=== PATIENT | male | born 1950 | race Caucasian/White ===

== ENCOUNTER → 2021-06-18 10:38 | Outpatient (BNVA) | payer MEDICARE, SELFPAY | PROVIDERS: PCP Nurse Practitioner; Visit Provider Nurse Practitioner | DX: E11.65 Type 2 diabetes mellitus with hyperglycemia (principal) | CPT/HCPCS: 80053; 80061; 81000; 83036; 85025 ==

== ENCOUNTER → 2021-09-04 08:20 | Outpatient (BNVA) | payer MEDICARE, OTHER, SELFPAY | PROVIDERS: PCP Nurse Practitioner; Visit Provider Nurse Practitioner | DX: E11.65 Type 2 diabetes mellitus with hyperglycemia (principal); I10 Essential (primary) hypertension | CPT/HCPCS: 80053; 80061; 85025 ==

== ENCOUNTER → 2021-11-25 08:20 | Outpatient (BNVA) | payer MEDICARE, OTHER, SELFPAY | PROVIDERS: PCP Nurse Practitioner; Visit Provider Nurse Practitioner | DX: I10 Essential (primary) hypertension (principal); E11.65 Type 2 diabetes mellitus with hyperglycemia | CPT/HCPCS: 80053; 80061; 83036 ==

== ENCOUNTER → 2022-05-04 08:31 | Outpatient (BNVA) | payer MEDICARE, OTHER, SELFPAY | PROVIDERS: PCP Nurse Practitioner; Visit Provider Nurse Practitioner | DX: E11.65 Type 2 diabetes mellitus with hyperglycemia (principal); I10 Essential (primary) hypertension | CPT/HCPCS: 80053; 80061; 83036 ==

== ENCOUNTER → 2022-05-10 09:09 | Outpatient (BNVA) | payer MEDICARE, OTHER, SELFPAY | PROVIDERS: PCP Nurse Practitioner; Visit Provider Nurse Practitioner | DX: E11.65 Type 2 diabetes mellitus with hyperglycemia (principal) | CPT/HCPCS: 81000 ==

== ENCOUNTER → 2022-07-26 08:17 | Outpatient (BNVA) | payer MEDICARE, OTHER, SELFPAY | PROVIDERS: PCP Nurse Practitioner; Visit Provider Nurse Practitioner | DX: E11.65 Type 2 diabetes mellitus with hyperglycemia (principal); I10 Essential (primary) hypertension | CPT/HCPCS: 80053; 80061; 83036 ==

== ENCOUNTER → 2022-10-19 07:59 | Outpatient (BNVA) | payer MEDICARE, OTHER, SELFPAY | PROVIDERS: PCP Nurse Practitioner; Visit Provider Nurse Practitioner | DX: E11.65 Type 2 diabetes mellitus with hyperglycemia (principal) | CPT/HCPCS: 80053; 81000; 82043; 83036 ==

== ENCOUNTER 2022-12-31 19:50 | Emergency (ER) | payer MEDICARE, OTHER, SELFPAY ==
[2022-12-31 19:51] VITALS: BP 148/71; PULSE 104; RESP 20; TEMP 36.6; O2SAT 90; BMI 37.1
--- NOTE | 2022-12-31 19:51 | XRR_ITS ---
PROCEDURE INFORMATION: Exam: XR Abdomen Exam date and time: 12/31/2022 8:03 PM Age: 72 years old Clinical indication: Constipation TECHNIQUE: Imaging protocol: Radiologic exam of the abdomen. Views: Frontal supine view of the abdomen. 1 View. COMPARISON: No relevant prior studies available. FINDINGS: Lungs: Visualized lung bases are unremarkable. Gastrointestinal tract: Minimal amount of feces in the right colon. There is feces noted in the rectum. No bowel dilation. Bones/joints: Unremarkable. XR/XR KUB [id number] IMPRESSION: No evidence of constipation. There is minimal amount of feces in the rectum.
--- NOTE | 2022-12-31 20:02 | CTR_ITS ---
PROCEDURE INFORMATION: Exam: CT Abdomen And Pelvis With Contrast Exam date and time: 12/31/2022 9:41 PM Age: 72 years old Clinical indication: Abdominal pain; Patient HX: Diffuse abd pain with constipation TECHNIQUE: Imaging protocol: Computed tomography of the abdomen and pelvis with contrast. Radiation optimization: All CT scans at this facility use at least one of these dose optimization techniques: automated exposure control; mA and/or kV adjustment per patient size (includes targeted exams where dose is matched to clinical indication); or iterative reconstruction. Contrast material: OMNI 350; Contrast volume: 100 ml; Contrast route: INTRAVENOUS (IV); REPORTING DATA: Count of CT and Cardiac NM exams in prior 12 months: This patient has received 0 known CTs and 0 known cardiac nuclear medicine studies in the 12 months prior to the current study. COMPARISON: CR (ABDOMEN, ) 12/31/2022 8:03 PM RADIATION DOSE METRICS: Total DLP (mGy-cm): 1013.16 FINDINGS: Lungs: Visualized lung bases are unremarkable. Liver: Normal. No mass. Gallbladder and bile ducts: The gallbladder is distended with gallstones in its dependent portion. There is no evidence cholecystitis. Pancreas: There is coarse calcification in the pancreas consistent with chronic pancreatitis. Spleen: Normal. No splenomegaly. Adrenal glands: Normal. No mass. Kidneys and ureters: There are multiple subcentimeter hypodensities in the kidneys which statistically represent cysts. Stomach and bowel: There is feces in the sigmoid colon and rectum. There is diverticulosis with no evidence of diverticulitis. Appendix: No evidence of appendicitis. Intraperitoneal space: Unremarkable. No free air. No significant fluid collection. Vasculature: Unremarkable. No abdominal aortic aneurysm. Lymph nodes: Unremarkable. No enlarged lymph nodes. Urinary bladder: Unremarkable as visualized. Reproductive: The prostate is prominent measuring 46.1 mm. Bones/joints: Moderate degenerative disease of the spine.. No acute fracture. Soft tissues: Unremarkable. CT/CT abdomen pelvis w con* [id number] IMPRESSION: Constipation. COMMENTS: Consistent with the [employer]'s Incidental Findings Committee white paper (J Am Taylor Radiol 2018): Any incidental renal lesion less than 1 cm or classified as too small to characterize, or any incidental cystic renal lesion characterized as simple-appearing, is likely benign. No follow-up imaging is recommended for these lesions per consensus recommendations based on imaging criteria.
--- NOTE | 2022-12-31 20:07 | W.ED.ABDPA2 ---
HPI - Abdominal Pain General: Chief Complaint: Abdominal Pain Stated Complaint: no bowel movements Time Seen by Provider: 12/31/22 19:56 Source: patient Mode of arrival: ambulatory Limitations: no limitations History of Present Illness: 72-year-old male states he been having abdominal pain throughout the day. States feelings of vomiting is full and is having diffuse cramping pain states he has had some constipation denies any vomiting or diarrhea. He rates his pain a 5 out of 10 currently he has been afebrile. Associated Symptoms: Reports constipation; Denies chills, diarrhea, fever(s), nausea and vomiting Review of Systems Const: Denies: fever(s), chills, body aches or change in appetite ENMT: Denies: throat pain or dental pain Card: Denies: chest pain Resp: Denies: dyspnea GI: Reports: abdominal pain and constipation; Denies: nausea, vomiting or diarrhea Musc: Denies: neck pain or back pain Skin/Breast: Denies: rash Neuro: Denies: headache(s) PFSH ED PFSH: Medical History Diabetes mellitus with hyperglycemia, without long-term current use of insulin Essential hypertension Obesity (BMI 30-39.9) Surgical History History of knee surgery left knee scope Family History Father Diabetes Mother Smoker Denies family history of Cancer Hypertension Stroke Social History Smoking and tobacco status: never smoked Second hand smoke exposure: No Smoking risk assessment/counseling performed?: No Alcohol intake: never Desire information about alcohol rehabilitation?: No Counseling given: No Substance/Drug Use: never Desire information about substance/drug rehabilitation?: No Counseling given: No Adopted: No Caregiver/support person: Yes Household members: none Housing: House Marital status: Single Number of children: 1 service: No Current occupational status: retired Current occupational exposures/hazards: No Pets and animals: Yes Pets & animals: dog(s) Do you think of yourself as: Straight/Heterosexual Current gender identity: Male Physical Exam Const: COMMON NORMALS: no acute distress, patient oriented x3 and healthy appearing HENMT: COMMON NORMALS: normocephalic and atraumatic HEAD & SCALP: normocephalic and atraumatic Eye: COMMON NORMALS: Equal, round and reactive pupils present and EOMs intact bilaterally PUPIL: Yes Equal, round and reactive pupils present Neck/C-Spine: COMMON NORMALS: full ROM and supple Chest: COMMONS NORMALS: normal inspection of the chest and normal palpation of entire chest wall Resp: COMMON NORMALS: normal respiratory effort, No retractions, No use of accessory muscles and clear to auscultation bilaterally AUSCULTATION: clear to auscultation bilaterally Cardio: COMMON NORMALS: regular rate, regular rhythm and No murmurs present (Cardio) RATE: regular rate RHYTHM: regular rhythm GI: COMMON NORMALS: Soft to palpation and no masses PALPATION: Yes Soft to palpation OTHER: Abdomen is distended with mild tenderness Extremity: COMMON NORMALS: normal to inspection and full ROM Neuro: COMMON NORMALS: patient oriented x3, moves all extremities and no focal motor deficits Psych: COMMON NORMALS: mental status grossly normal, Normal thought process present and cooperative THOUGHT PROCESS: Normal thought process present Skin: COMMON NORMALS: no rashes or lesions noted and no wounds GENERAL SKIN EXAM: no rashes or lesions noted Course Vital Signs: Vital signs: Vital Signs Temperature 97.9 F 12/31/22 19:51 Pulse Rate 122 H 12/31/22 22:42 Respiratory Rate 18 12/31/22 22:42 Blood Pressure 120/75 12/31/22 22:42 Pulse Oximetry 89 L 12/31/22 22:42 Oxygen Delivery Me thod Room Air 12/31/22 22:28 MDM - Abdominal Pain Medical Decision Making Patient presents here with constipation seen on CT scan did give him lactulose we will prescribe MiraLAX for home had some mild hypoxia here he is wanting go home at this time refuses any other work-up he states he feels fine and believe he probably lives around 90 where he has been here he is to follow-up his PCP though return if worsening. Lab Data 12/31/22 20:18 12/31/22 20:18 Labs/Radiology: Radiology Impressions KUB X-Ray 12/31/22 19:51 IMPRESSION: No evidence of constipation. There is minimal amount of feces in the rectum. Abdomen/Pelvis CT 12/31/22 20:02 IMPRESSION: Constipation. COMMENTS: Consistent with the [employer]'s Incidental Findings Committee white paper (J Am Taylor Radiol 2018): Any incidental renal lesion less than 1 cm or classified as too small to characterize, or any incidental cystic renal lesion characterized as simple-appearing, is likely benign. No follow-up imaging is recommended for these lesions per consensus recommendations based on imaging criteria. Chest X-Ray 12/31/22 22:13 IMPRESSION: No acute cardiopulmonary disease. Laboratory Results WBC 10.82 10^3/uL (3.29-11.43) 12/31/22 20:18 RBC 5.07 10^6/uL (3.85-5.65) 12/31/22 20:18 Hgb 15.10 g/dL (11.27-16.99) 12/31/22 20:18 Hct 45.8 % (37-53) 12/31/22 20:18 MCV 90.3 fl (82-101) 12/31/22 20:18 MCH 29.8 pg (27-33) 12/31/22 20:18 MCHC 33.0 g/dL (30-55) 12/31/22 20:18 RDW 13.7 % (12.1-15.1) 12/31/22 20:18 Plt Count 268 10^3/cmm (157-399) 12/31/22 20:18 MPV 9.3 fL (7.4-10.4) 12/31/22 20:18 Neut % (Auto) 93.3 % 12/31/22 20:18 Lymph % (Auto) 5.2 % 12/31/22 20:18 Leon % (Auto) 0.9 % 12/31/22 20:18 Eos % (Auto) 0.0 % 12/31/22 20:18 Baso % (Auto) 0.3 % 12/31/22 20:18 Neut # (Auto) 10.10 10^3/uL (1.8-7.7) H 12/31/22 20:18 Lymph # (Auto) 0.6 10^3/uL (0.8-4.8) L 12/31/22 20:18 Leon # (Auto) 0.1 10^3/uL (0.2-0.9) L 12/31/22 20:18 Eos # (Auto) 0.0 10^3/uL (0.0-0.8) 12/31/22 20:18 Baso # (Auto) 0.0 10^3/uL (0.0-0.1) 12/31/22 20:18 Nucleated RBC % (auto) 0 % 12/31/22 20:18 Nucleated RBCs # 0.0 /100WBC 12/31/22 20:18 Sodium 137 mmol/L (136-145) 12/31/22 20:18 Potassium 4.3 mmol/L (3.5-5.1) 12/31/22 20:18 Chloride 98 mmol/L (98-107) 12/31/22 20:18 Carbon Dioxide 25 mmol/L (22-29) 12/31/22 20:18 Anion Gap 18.3 (5-19) 12/31/22 20:18 BUN 24 mg/dL (8-23) H 12/31/22 20:18 Creatinine 1.1 mg/dL (0.7-1.2) 12/31/22 20:18 GFR Calculation Not Reportable 12/31/22 20:18 Glucose 286 mg/dL (65-115) H 12/31/22 20:18 Calculated Osmolality 298 mOsm/kg (285-295) H 12/31/22 20:18 Calcium 9.1 mg/dL (8.5-10.5) 12/31/22 20:18 Total Bilirubin 1.4 mg/dL (0.15-1.2) H 12/31/22 20:18 AST 199 U/L (0-40) H 12/31/22 20:18 ALT 196 U/L (0-41) H 12/31/22 20:18 Alkaline Phosphatase 103 U/L (40-130) 12/31/22 20:18 Total Protein 7.7 g/dL (6.6-8.7) 12/31/22 20:18 Albumin 4.4 g/dL (3.5-5.2) 12/31/22 20:18 Globulin 3.3 g/dL (1.3-4.6) 12/31/22 20:18 Lipase 49 U/L (13-60) 12/31/22 20:18 Discharge Plan Discharge Patient Disposition: Home Clinical Impression: Constipation Condition: Stable Prescriptions: New Miralax 17 gram powder in packet 17 g PO DAILY Qty: 14 0RF No Action Farxiga 5 mg tablet 5 mg PO QAM Qty: 30 2RF glipizide 10 mg tablet 20 mg PO BID Qty: 360 0RF atorvastatin 40 mg tablet 40 mg PO DAILY Qty: 90 0RF lisinopril 20 mg tablet 20 mg PO DAILY Qty: 90 0RF metformin 500 mg tablet extended release 24 hr 2,000 mg PO DAILY Qty: 360 0RF metoprolol tartrate 25 mg tablet 25 mg PO BID Qty: 180 0RF Discharge Orders: Discharge ED (Routine); Ordered 12/31/22 Ordered By: Sameer Chua Referrals: Art Rivers, [facility] [Primary Care Provider] - 1-3 days Discharge Diet: Advance as tolerated Discharge Activity: Resume usual activity Patient Instructions: Constipation (ED) Coding Level of Care Code ED Human Resources Partner for [facility]
[2022-12-31 20:24] LABS: Basophils % 0.3 %; Hematocrit 45.8 % (37-53); Lymphocytes # 0.6 10^3/uL (0.8-4.8); Lymphocytes % 5.2 %; Mean Corpuscular Hemoglobin 29.8 pg (27-33); Mean Corpuscular Volume 90.3 fl (82-101); Mean Platelet Volume 9.3 fL (7.4-10.4); Monocytes # 0.1 10^3/uL (0.2-0.9); Monocytes % 0.9 %; Neutrophils % 93.3 %; Nucleated Red Blood Cells % 0 %; Platelet Count 268 10^3/cmm (157-399); Red Blood Count 5.07 10^6/uL (3.85-5.65); Red Cell Distribution Width 13.7 % (12.1-15.1); White Blood Count 10.82 10^3/uL (3.29-11.43)
[2022-12-31 21:03] LABS: Alanine Aminotransferase 196 U/L (0-41); Albumin Level 4.4 g/dL (3.5-5.2); Alkaline Phosphatase 103 U/L (40-130); Anion Gap 18.3 (5-19); Aspartate Amino Transferase 199 U/L (0-40); Blood Urea Nitrogen 24 mg/dL (8-23); Calcium 9.1 mg/dL (8.5-10.5); Carbon Dioxide 25 mmol/L (22-29); Chloride 98 mmol/L (98-107); Globulin 3.3 g/dL (1.3-4.6); Glucose 286 mg/dL (65-115); Lipase 49 U/L (13-60); Osmolality Calculated 298 mOsm/kg (285-295); Potassium 4.3 mmol/L (3.5-5.1); Sodium 137 mmol/L (136-145); Total Bilirubin 1.4 mg/dL (0.15-1.2); Total Protein 7.7 g/dL (6.6-8.7)
[2022-12-31] MEDS: iohexol 350 mg/mL 500 mL Btl (per mL) IV (21:43)
[2022-12-31 21:57] VITALS: RESP 18; O2SAT 93
[2022-12-31] MEDS: morphine 4 mg/mL SDV 1 mL IVP (21:57)
[2022-12-31] MEDS: ondansetron 2 mg/ML SDV 2 mL 4 MG IVP (21:58)
--- NOTE | 2022-12-31 22:13 | XRR_ITS ---
PROCEDURE INFORMATION: Exam: XR Chest Exam date and time: 12/31/2022 10:37 PM Age: 72 years old Clinical indication: Pain; Other: Constipation; Additional info: Abd pain TECHNIQUE: Imaging protocol: Radiologic exam of the chest. Views: 1 view. COMPARISON: CT abdomen pelvis w con* [id number] 12/31/2022 9:41 PM FINDINGS: Lungs: Unremarkable. No consolidation. Pleural spaces: Unremarkable. No pleural effusion. No pneumothorax. Heart/Mediastinum: There is cardiomegaly. There is prominence of the descending thoracic. Bones/joints: Unremarkable. Intraperitoneal space: There is no free intraperitoneal air. XR/XR chest 1V portable [id number] IMPRESSION: No acute cardiopulmonary disease.
[2022-12-31] MEDS: lactulose oral liq 20 gm/30 mL UDC 30 GM PO (22:16)
[2022-12-31 22:28] VITALS: BP 126/62; PULSE 118; RESP 18; O2SAT 88
[2022-12-31 22:42] VITALS: BP 120/75; PULSE 122; RESP 18; O2SAT 89
== END 2022-12-31 22:50 | disposition home or self-care (01) ==
PROVIDERS: Emergency Provider Emergency Medicine; PCP Nurse Practitioner
DX: K59.00 Constipation, unspecified (principal); Z79.84 Long term (current) use of oral hypoglycemic drugs; E11.9 Type 2 diabetes mellitus without complications; I10 Essential (primary) hypertension
CPT/HCPCS: 36415; 71045; 74018; 74177; 80053; 83690; 85025; 96374; 96375; 99285; J2270; J2405; Q9967

== ENCOUNTER → 2023-01-17 08:00 | Outpatient (BNVA) | payer MEDICARE, OTHER, SELFPAY | PROVIDERS: PCP Nurse Practitioner; Visit Provider Nurse Practitioner | DX: E11.65 Type 2 diabetes mellitus with hyperglycemia (principal) | CPT/HCPCS: 80053; 80061; 83036; 85025 ==

== ENCOUNTER → 2023-04-05 08:26 | Outpatient (BNVA) | payer MEDICARE, OTHER, SELFPAY | PROVIDERS: PCP Nurse Practitioner; Visit Provider Nurse Practitioner | DX: E11.65 Type 2 diabetes mellitus with hyperglycemia (principal); I10 Essential (primary) hypertension | CPT/HCPCS: 80053; 80061; 83036 ==

== ENCOUNTER → 2023-06-21 07:57 | Outpatient (BNVA) | payer MEDICARE, OTHER, SELFPAY | PROVIDERS: PCP Nurse Practitioner; Visit Provider Nurse Practitioner | DX: E11.65 Type 2 diabetes mellitus with hyperglycemia (principal) | CPT/HCPCS: 80053; 80061; 83036 ==

== ENCOUNTER → 2023-09-05 08:12 | Outpatient (BNVA) | payer MEDICARE, OTHER, SELFPAY | PROVIDERS: PCP Nurse Practitioner; Visit Provider Nurse Practitioner | DX: E11.9 Type 2 diabetes mellitus without complications (principal) | CPT/HCPCS: 80053; 80061; 83036; 85025 ==

== ENCOUNTER 2023-12-30 18:08 | Emergency (ER) | payer MEDICARE, OTHER, SELFPAY ==
[2023-12-30 18:15] VITALS: BP 156/73; PULSE 76; RESP 16; TEMP 36.6; O2SAT 94; BMI 33.7
[2023-12-30 18:39] LABS: Basophils # 0.1 10^3/uL (0.0-0.1); Basophils % 0.4 %; Eosinophils % 0.2 %; Hematocrit 45.8 % (37-53); Lymphocytes # 0.9 10^3/uL (0.8-4.8); Lymphocytes % 6.4 %; Mean Corpuscular Hemoglobin 29.6 pg (27-33); Mean Corpuscular Volume 89.8 fl (82-101); Monocytes # 0.6 10^3/uL (0.2-0.9); Monocytes % 4.4 %; Neutrophils # 11.67 10^3/uL (1.8-7.7); Neutrophils % 88.1 %; Nucleated Red Blood Cells % 0 %; Platelet Count 338 10^3/cmm (157-399); Red Cell Distribution Width 14.3 % (12.1-15.1); White Blood Count 13.26 10^3/uL (3.29-11.43)
[2023-12-30 18:55] LABS: Alanine Aminotransferase 59 U/L (0-41); Albumin Level 4.6 g/dL (3.5-5.2); Alkaline Phosphatase 103 U/L (40-130); Anion Gap 18.9 (5-19); Aspartate Amino Transferase 39 U/L (0-40); Blood Urea Nitrogen 29 mg/dL (8-23); Calcium 9.3 mg/dL (8.5-10.5); Carbon Dioxide 26 mmol/L (22-29); Chloride 94 mmol/L (98-107); Creatinine Clr Calc Pharmacy 59.9725; Globulin 3.3 g/dL (1.3-4.6); Glucose 209 mg/dL (65-115); Lipase 25 U/L (13-60); Osmolality Calculated 290 mOsm/kg (285-295); Potassium 4.9 mmol/L (3.5-5.1); Sodium 134 mmol/L (136-145); Total Bilirubin 1.8 mg/dL (0.15-1.2); Total Protein 7.9 g/dL (6.6-8.7)
--- NOTE | 2023-12-31 00:28 | W.ED.ABDPA2 ---
Documented by User: SUZANNE Hicks 12/31/23 00:34 HPI - Abdominal Pain General: Chief Complaint: Abdominal Pain Stated Complaint: Abd pain constipation fever n/v Time Seen by Provider: 12/30/23 23:45 Source: patient Mode of arrival: ambulatory Limitations: no limitations History of Present Illness: Patient is a 73-year-old male presenting to the emergency department complaining of abdominal pain onset today. Patient states last night he took some milk of magnesia because he felt himself getting constipated, and this seemed to help his pain. He states this morning he was okay until he had sudden onset of vomiting, fevers, and diffuse abdominal pain again. He states that this again resolved while in the waiting room, and he has gone a few hours without having any symptoms. He states he had some very greasy food for lunch, and this may have caused some food poisoning. Denies any upper respiratory symptoms or being around any sick contacts that he knows of. He does not have his gallbladder. He is stating at this time that he is ready to go home. No other symptoms or concerning historical factors to report. MD elicited complaint: abdominal pain Onset (ago): hour(s) Pain Consistency: now resolved Location: Diffuse Severity: mild Radiation: none Associated Symptoms: Reports constipation, fever(s), nausea and vomiting; Denies bloating, change in stool character, chills, diarrhea, dysuria and hematochezia Related Data Previous Rx's Medication Instructions Recorded atorvastatin 40 mg tablet 40 mg PO DAILY #90 tabs 09/08/23 glipizide 10 mg tablet 20 mg (2 x 10 mg) PO BID #360 tabs 09/08/23 liraglutide 0.6 mg/0.1 mL (18 mg/3 1.8 mg (0.3 mL) SUBCUT DAILY #9 mL 09/08/23 mL) subcutaneous pen injector (Victoza 3-Gerard) lisinopril 20 mg tablet 20 mg PO DAILY #90 tabs 09/08/23 metformin 500 mg tablet,extended 2,000 mg (4 x 500 mg) PO DAILY 09/08/23 release 24 hr #360 tabs metoprolol tartrate 25 mg tablet 25 mg PO BID #180 tabs 09/08/23 Allergies Allergy/AdvReac Type Severity Reaction Status Date / Time No Known Allergies Allergy Verified 12/30/23 18:20 Review of Systems General: Reports: 10 or more systems reviewed and unremarkable except in HPI and below Const: Reports: fever(s); Denies: chills, change in appetite, change in weight or diaphoresis ENMT: Denies: throat pain or hoarseness Card: Denies: chest pain, palpitations or lightheadedness Resp: Denies: dyspnea, productive cough or wheezing GI: Reports: abdominal pain, nausea, vomiting and constipation; Denies: diarrhea, bloating, change in stool character or hematochezia : Denies: flank pain, difficulty urinating, dysuria, urinary frequency or urinary urgency Musc: Denies: neck pain or back pain Skin/Breast: Denies: rash or new lesions Neuro: Denies: headache(s) or dizziness PFSH ED PFSH: Medical History Obesity (BMI 30-39.9) Essential hypertension Diabetes mellitus with hyperglycemia, without long-term current use of insulin Surgical History History of knee surgery left knee scope Family History Father Diabetes Mother Smoker Denies family history of Cancer Hypertension Stroke Social History Smoking and tobacco/nicotine status: never used tobacco/nicotine Second hand smoke exposure: No Alcohol intake: never Substance/Drug Use: never Adopted: No Caregiver/support person: Yes Household members: none Housing: House Marital status: Single Number of children: 1 service: No Current occupational status: retired Current occupational exposures/hazards: No Pets and animals: Yes Pets & animals: dog(s) Do you think of yourself as: Straight/Heterosexual Current gender identity: Male Physical Exam Const: COMMON NORMALS: no acute distress, average body habitus, patient oriented x3, no limitations, healthy appearing, alert and well nourished GENERAL APPEARANCE: cooperative and comfortable ORIENTATION/CONSCIOUSNESS: Yes awake HENMT: COMMON NORMALS: normocephalic, atraumatic, hearing grossly normal bilaterally, external ears normal, Normal external nose present, Normal nasal mucous membranes and turbinates present and moist oral mucous membranes HEAD & SCALP: normocephalic and atraumatic NOSE: Normal external nose present and Normal nasal mucous membranes and turbinates present EXTERNAL EAR: Yes external ears normal Eye: COMMON NORMALS: Equal, round and reactive pupils present, EOMs intact bilaterally, conjunctivae normal and normal visual castañeda by confrontation CONJUNCTIVA: Yes conjunctivae normal PUPIL: Yes Equal, round and reactive pupils present Neck/C-Spine: COMMON NORMALS: full ROM, supple, no meningeal signs and no JVD Resp: COMMON NORMALS: normal respiratory effort, No retractions, No use of accessory muscles and clear to auscultation bilaterally AUSCULTATION: clear to auscultation bilaterally, no crackles, no rales, no rhonchi and no wheezes Cardio: COMMON NORMALS: no JVD, regular rate, regular rhythm, S1 normal heart sound present, S2 normal heart sound present, No gallops present (Cardio), No clicks present (Cardio), No murmurs present (Cardio), No rub (Cardio) and Peripheral pulses 2+ throughout RATE: regular rate RHYTHM: regular rhythm HEART SOUNDS: S1 normal heart sound present and S2 normal heart sound present PERIPHERAL PULSES: Peripheral pulses 2+ throughout GI: COMMON NORMALS: Normal to inspection, nondistended, normoactive bowel sounds present, Soft to palpation, non-tender, No hepatosplenomegaly present and no masses AUSCULTATION: Yes normoactive bowel sounds PALPATION: Yes Soft to palpation, No Guarding due to palpation present (GI), No Rigid due to palpation and Yes No hepatosplenomegaly present RECTAL EXAM: Yes deferred : COMMON NORMALS: Yes no CVA tenderness BLADDER/KIDNEY EXAM: Yes no CVA tenderness Back/Pelvis: COMMON NORMALS: no CVA tenderness Extremity: COMMON NORMALS: normal to inspection and full ROM Neuro: COMMON NORMALS: patient oriented x3, moves all extremities, no focal motor deficits and no sensory deficits noted SENSORIUM/ORIENTATION: Yes alert MENINGEAL SIGNS: Yes no meningeal signs Psych: COMMON NORMALS: mental status grossly normal, cooperative and speech normal SPEECH: Yes normal speech Skin: COMMON NORMALS: no rashes or lesions noted GENERAL SKIN EXAM: no rashes or lesions noted Course Vital Signs: Vital signs: Vital Signs Temperature 97.9 F 12/30/23 18:15 Pulse Rate 100 12/31/23 01:08 Respiratory Rate 18 12/31/23 01:08 Blood Pressure 156/73 12/30/23 18:15 Pulse Oximetry 91 12/31/23 01:08 Oxygen Delivery Me thod Room Air 12/30/23 18:15 MDM - Abdominal Pain Medical Decision Making Patient present for abdominal pain that has now resolved. Also had some other symptoms of vomiting, fever, and was constipated last night but this was improved with milk of magnesia. His vitals were normal on arrival, and initially on examination he states he was ready to leave as he was no longer having any symptoms. Labs essentially were unremarkable, glucose elevated though patient is diabetic and had not taken his medication yet. His physical examination was completely unremarkable. Patient's symptoms are thought to be likely viral in nature, but could potentially be an acute food poisoning. Being that he is asymptomatic, no need for imaging at this time or other workup. Patient also is stating that he wants to go home. I did talk with the patient in regards to reasons to return, to which he understands and family member in the room also endorses understanding. Patient discharged home at this time. Lab Data 12/30/23 18:29 12/30/23 18:29 Labs/Radiology: Laboratory Results WBC 13.26 10^3/uL (3.29-11.43) H 12/30/23 18: RBC 5.10 10^6/uL (3.85-5.65) 12/30/23 18: Hgb 15.10 g/dL (11.27-16.99) 12/30/23 18: Hct 45.8 % (37-53) 12/30/23 18: MCV 89.8 fl (82-101) 12/30/23 18: MCH 29.6 pg (27-33) 12/30/23 18: MCHC 33.0 g/dL (30-55) 12/30/23 18: RDW 14.3 % (12.1-15.1) 12/30/23 18: Plt Count 338 10^3/cmm (157-399) 12/30/23 18: MPV 9.0 fL (7.4-10.4) 12/30/23 18: Neut % (Auto) 88.1 % 12/30/23 18: Lymph % (Auto) 6.4 % 12/30/23 18:29 Cook % (Auto) 4.4 % 12/30/23 18: Eos % (Auto) 0.2 % 12/30/23 18:29 Baso % (Auto) 0.4 % 12/30/23 18:29 Neut # (Auto) 11.67 10^3/uL (1.8-7.7) H 12/30/23 18:29 Lymph # (Auto) 0.9 10^3/uL (0.8-4.8) 12/30/23 18:29 Cook # (Auto) 0.6 10^3/uL (0.2-0.9) 12/30/23 18: Eos # (Auto) 0.0 10^3/uL (0.0-0.8) 12/30/23 18: Baso # (Auto) 0.1 10^3/uL (0.0-0.1) 12/30/23 18: Nucleated RBC % (auto) 0 % 12/30/23 18: Nucleated RBCs # 0.0 /100WBC 12/30/23 18:29 Sodium 134 mmol/L (136-145) L 12/30/23 18:29 Potassium 4.9 mmol/L (3.5-5.1) 12/30/23 18: Chloride 94 mmol/L (98-107) L 12/30/23 18:29 Carbon Dioxide 26 mmol/L (22-29) 12/30/23 18:29 Anion Gap 18.9 (5-19) 12/30/23 18:29 BUN 29 mg/dL (8-23) H 12/30/23 18:29 Creatinine 1.2 mg/dL (0.7-1.2) 12/30/23 18:29 GFR Calculation Not Reportable 12/30/23 18:29 Glucose 209 mg/dL (65-115) H 12/30/23 18:29 Calculated Osmolality 290 mOsm/kg (285-295) 12/30/23 18:29 Calcium 9.3 mg/dL (8.5-10.5) 12/30/23 18:29 Total Bilirubin 1.8 mg/dL (0.15-1.2) H 12/30/23 18:29 AST 39 U/L (0-40) 12/30/23 18:29 ALT 59 U/L (0-41) H 12/30/23 18:29 Alkaline Phosphatase 103 U/L (40-130) 12/30/23 18:29 Total Protein 7.9 g/dL (6.6-8.7) 12/30/23 18:29 Albumin 4.6 g/dL (3.5-5.2) 12/30/23 18:29 Globulin 3.3 g/dL (1.3-4.6) 12/30/23 18:29 Lipase 25 U/L (13-60) 12/30/23 18:29 No radiology studies performed this visit Discharge Plan Discharge Patient Disposition: Home Clinical Impression: Viral gastroenteritis Condition: Stable Prescriptions: No Action atorvastatin 40 mg tablet 40 mg PO DAILY Qty: 90 1RF glipizide 10 mg tablet 20 mg PO BID Qty: 360 1RF Victoza 3-Gerard 0.6 mg/0.1 mL (18 mg/3 mL) pen injector 1.8 mg SUBCUT DAILY Qty: 9 2RF lisinopril 20 mg tablet 20 mg PO DAILY Qty: 90 1RF metformin 500 mg tablet extended release 24 hr 2,000 mg PO DAILY Qty: 360 1RF metoprolol tartrate 25 mg tablet 25 mg PO BID Qty: 180 1RF Discharge Orders: Discharge ED (Routine); Ordered 12/31/23 Ordered By: Ezequiel Pittman Referrals: Art Rivers, [employer]ELOPER-C [Primary Care Provider] - Discharge Diet: As Directed Discharge Activity: Increase activity as tolerated Patient Instructions: Gastroenteritis (ED) Activity Restrictions/Additional Instructions: Clear liquid diet. Tylenol or ibuprofen for any pain. Plenty of fluids. If you have any recurrence of pain, severe vomiting, or other concerning symptoms, please return for reevaluation. Otherwise follow-up with primary care. 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 [place] Fwd Documented by User: Mak Puentes DO Ej 12/31/23 19:20 HPI - Abdominal Pain General: Chief Complaint: Abdominal Pain Stated Complaint: Abd pain constipation fever n/v Time Seen by Provider: 12/30/23 23:45 Related Data Previous Rx's Medication Instructions Recorded atorvastatin 40 mg tablet 40 mg PO DAILY #90 tabs 09/08/23 glipizide 10 mg tablet 20 mg (2 x 10 mg) PO BID #360 tabs 09/08/23 liraglutide 0.6 mg/0.1 mL (18 mg/3 1.8 mg (0.3 mL) SUBCUT DAILY #9 mL 09/08/23 mL) subcutaneous pen injector (Victoza 3-Gerard) lisinopril 20 mg tablet 20 mg PO DAILY #90 tabs 09/08/23 metformin 500 mg tablet,extended 2,000 mg (4 x 500 mg) PO DAILY 09/08/23 release 24 hr #360 tabs metoprolol tartrate 25 mg tablet 25 mg PO BID #180 tabs 09/08/23 Allergies Allergy/AdvReac Type Severity Reaction Status Date / Time No Known Allergies Allergy Verified 12/30/23 18:20 PFSH ED PFSH: Medical History Obesity (BMI 30-39.9) Essential hypertension Diabetes mellitus with hyperglycemia, without long-term current use of insulin Surgical History History of knee surgery left knee scope Family History Father Diabetes Mother Smoker Denies family history of Cancer Hypertension Stroke Social History Smoking and tobacco/nicotine status: never used tobacco/nicotine Second hand smoke exposure: No Alcohol intake: never Substance/Drug Use: never Adopted: No Caregiver/support person: Yes Household members: none Housing: House Marital status: Single Number of children: 1 service: No Current occupational status: retired Current occupational exposures/hazards: No Pets and animals: Yes Pets & animals: dog(s) Do you think of yourself as: Straight/Heterosexual Current gender identity: Male Course Vital Signs: Vital signs: Vital Signs Temperature 97.9 F 08/30/24 18:15 Pulse Rate 100 12/31/23 01:08 Respiratory Rate 18 12/31/23 01:08 Blood Pressure 156/73 12/30/23 18:15 Pulse Oximetry 91 12/31/23 01:08 Oxygen Delivery Me thod Room Air 12/30/23 18:15 MDM - Abdominal Pain Medical Decision Making Patient present for abdominal pain that has now resolved. Also had some other symptoms of vomiting, fever, and was constipated last night but this was improved with milk of magnesia. His vitals were normal on arrival, and initially on examination he states he was ready to leave as he was no longer having any symptoms. Labs essentially were unremarkable, glucose elevated though patient is diabetic and had not taken his medication yet. His physical examination was completely unremarkable. Patient's symptoms are thought to be likely viral in nature, but could potentially be an acute food poisoning. Being that he is asymptomatic, no need for imaging at this time or other workup. Patient also is stating that he wants to go home. I did talk with the patient in regards to reasons to return, to which he understands and family member in the room also endorses understanding. Patient discharged home at this time. This patient was originally seen by Mr. Zain PA-C.? I agree with his history, evaluation, and treatment. Lab Data 12/30/23 18:29 12/30/23 18:29 Labs/Radiology: Laboratory Results WBC 13.26 10^3/uL (3.29-11.43) H 12/30/23 18: RBC 5.10 10^6/uL (3.85-5.65) 12/30/23 18: Hgb 15.10 g/dL (11.27-16.99) 12/30/23 18: Hct 45.8 % (37-53) 12/30/23 18: MCV 89.8 fl (82-101) 12/30/23 18: MCH 29.6 pg (27-33) 12/30/23 18: MCHC 33.0 g/dL (30-55) 12/30/23 18: RDW 14.3 % (12.1-15.1) 12/30/23 18: Plt Count 338 10^3/cmm (157-399) 12/30/23 18: MPV 9.0 fL (7.4-10.4) 12/30/23 18: Neut % (Auto) 88.1 % 12/30/23 18: Lymph % (Auto) 6.4 % 12/30/23 18:29 Cook % (Auto) 4.4 % 12/30/23 18:29 Eos % (Auto) 0.2 % 12/30/23 18:29 Baso % (Auto) 0.4 % 12/30/23 18: Neut # (Auto) 11.67 10^3/uL (1.8-7.7) H 12/30/23 18: Lymph # (Auto) 0.9 10^3/uL (0.8-4.8) 12/30/23 18: Cook # (Auto) 0.6 10^3/uL (0.2-0.9) 12/30/23 18: Eos # (Auto) 0.0 10^3/uL (0.0-0.8) 12/30/23 18: Baso # (Auto) 0.1 10^3/uL (0.0-0.1) 12/30/23 18: Nucleated RBC % (auto) 0 % 12/30/23 18: Nucleated RBCs # 0.0 /100WBC 12/30/23 18:29 Sodium 134 mmol/L (136-145) L 12/30/23 18:29 Potassium 4.9 mmol/L (3.5-5.1) 12/30/23 18: Chloride 94 mmol/L (98-107) L 12/30/23 18:29 Carbon Dioxide 26 mmol/L (22-29) 12/30/23 18:29 Anion Gap 18.9 (5-19) 12/30/23 18:29 BUN 29 mg/dL (8-23) H 12/30/23 18:29 Creatinine 1.2 mg/dL (0.7-1.2) 12/30/23 18:29 GFR Calculation Not Reportable 12/30/23 18:29 Glucose 209 mg/dL (65-115) H 12/30/23 18:29 Calculated Osmolality 290 mOsm/kg (285-295) 12/30/23 18:29 Calcium 9.3 mg/dL (8.5-10.5) 12/30/23 18:29 Total Bilirubin 1.8 mg/dL (0.15-1.2) H 12/30/23 18:29 AST 39 U/L (0-40) 12/30/23 18:29 ALT 59 U/L (0-41) H 12/30/23 18:29 Alkaline Phosphatase 103 U/L (40-130) 12/30/23 18:29 Total Protein 7.9 g/dL (6.6-8.7) 12/30/23 18:29 Albumin 4.6 g/dL (3.5-5.2) 12/30/23 18:29 Globulin 3.3 g/dL (1.3-4.6) 12/30/23 18:29 Lipase 25 U/L (13-60) 12/30/23 18:29 Discharge Plan Discharge Patient Disposition: Home Clinical Impression: Viral gastroenteritis Condition: Stable Prescriptions: No Action atorvastatin 40 mg tablet 40 mg PO DAILY Qty: 90 1RF glipizide 10 mg tablet 20 mg PO BID Qty: 360 1RF Victoza 3-Gerard 0.6 mg/0.1 mL (18 mg/3 mL) pen injector 1.8 mg SUBCUT DAILY Qty: 9 2RF lisinopril 20 mg tablet 20 mg PO DAILY Qty: 90 1RF metformin 500 mg tablet extended release 24 hr 2,000 mg PO DAILY Qty: 360 1RF metoprolol tartrate 25 mg tablet 25 mg PO BID Qty: 180 1RF Discharge Orders: Discharge ED (Routine); Ordered 12/31/23 Ordered By: Ezequiel Pittman Referrals: Art Rivers, [employer] DEVELOPER-C [Primary Care Provider] - Discharge Diet: As Directed Discharge Activity: Increase activity as tolerated Patient Instructions: Gastroenteritis (ED) Activity Restrictions/Additional Instructions: Clear liquid diet. Tylenol or ibuprofen for any pain. Plenty of fluids. If you have any recurrence of pain, severe vomiting, or other concerning symptoms, please return for reevaluation. Otherwise follow-up with primary care. 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
[2023-12-31 01:08] VITALS: PULSE 100; RESP 18; O2SAT 91
== END 2023-12-31 00:21 | disposition home or self-care (01) ==
PROVIDERS: Emergency Medicine; Emergency Provider Physician Assistant; PCP Nurse Practitioner
DX: A08.4 Viral intestinal infection, unspecified (principal); Z79.84 Long term (current) use of oral hypoglycemic drugs; I10 Essential (primary) hypertension; E11.9 Type 2 diabetes mellitus without complications
CPT/HCPCS: 36415; 80053; 83690; 85025; 99283